=== PATIENT | female | born 1960 | race Hispanic/Latino ===

== ENCOUNTER 2017-07-16 18:45 | Emergency (ER) | payer OTHER ==
[2017-07-16 18:59] VITALS: BP 119/83; PULSE 65; RESP 16; TEMP 98.7; O2SAT 100
--- NOTE | 2017-07-16 19:56 | ED PDOC ---
Lower Extremity Pain/Injury Time Seen by Provider: 07/16/17 19:01 Chief Complaint (Nursing): Lower Extremity Problem/Injury Chief Complaint (Provider): shaheedma History Per: Patient History/Exam Limitations: no limitations Additional Complaint(s): 57yo F in Ed for eal of fall injury-states that she fell down a flight of staircase and now with swelling to right ankle unable to bear wght pain with ROM and tingling sensation to foot without radiation to leg. pt also c.o b/l wrist pain with dec ROM and tingling sensation to wrist. with swelling to ulnar side. pt doesn't remember how she fell onto wrist. right hand dominant Past Medical History Reviewed: Historical Data, Nursing Documentation, Vital Signs Vital Signs: Last Vital Signs Temp 98.7 F 07/16/17 18:54 Pulse 65 07/16/17 18:54 Resp 16 07/16/17 18:54 BP 119/83 07/16/17 18:54 Pulse Ox 100 07/16/17 18:54 - Medical History PMH: No Chronic Diseases - Family History Family History: States: No Known Family Hx - Allergies Allergies/Adverse Reactions: Allergies Allergy/AdvReac Type Severity Reaction Status Date / Time No Known Allergies Allergy Verified 07/16/17 19:11 Review of Systems ROS Statement: Except As Marked, All Systems Reviewed And Found Negative Musculoskeletal: Positive for: Other (ankle pain b/l and wrist pain b/l) Physical Exam - Reviewed Nursing Documentation Reviewed: Yes Vital Signs Reviewed: Yes - Physical Exam Appears: Positive for: Well, Non-toxic, No Acute Distress Skin: Positive for: Normal Color, Warm, DRY Cardiovascular/Chest: Positive for: Regular Rate, Rhythm Respiratory: Positive for: CNT, Normal Breath Sounds Back: Positive for: Normal Inspection, Other Extremity: Positive for: Other (right ankle: swelilng to lateral malleous. tenderness noted , nuerovasc intact . left/right wrist: swellng to radial side with tenderness and dec rOM due to pain. no wrist defomrity noted. able to pronate and supinate. ) Neurologic/Psych: Positive for: Alert, Oriented - ECG O2 Sat by Pulse Oximetry: 100 - Radiology X-Ray: Interpreted by Me (fx noted to left wrist.age inderterminate. right wrist : no fx noted. right ankle: no fracture noted. soft tissue swelling. ) Medical Decision Making Medical Decision Making: dx: wrist fracture volar splint with f.u with hand specialist. ankle sprain aircast and SATYA wrap. f.u with podiatry. pain control Motrin Disposition - Clinical Impression Clinical Impression: Wrist fracture, Ankle sprain, Wrist sprain - Patient ED Disposition Is Patient to be Admitted: No Counseled Patient/Family Regarding: Studies Performed, Diagnosis, Need For Followup, Rx Given - Disposition Referrals: [facility] [Outside] John Reese MD [Medical Doctor] - [facility] [Outside] Disposition: Routine/Home Disposition Time: 20:11 Condition: STABLE Instructions: Ibuprofen (By mouth), Wrist Injury (ED), Wrist Fracture in Adults (ED), Ankle Sprain (ED), Ankle Exercises (GEN)
--- NOTE | 2017-07-17 10:13 | RAD ---
PROCEDURE: Right Ankle Radiographs. HISTORY: ankle injury COMPARISON: No prior study available comparison FINDINGS: BONES: Questionable tiny chip fracture inferolateral tip right lateral malleolus. Overlying moderate soft tissue swelling JOINTS: Normal. No osteoarthritis. Ankle mortise maintained. Talar dome intact SOFT TISSUES: As above OTHER FINDINGS: None. IMPRESSION: Questionable tiny chip fracture inferolateral tip right lateral malleolus. Overlying moderate soft tissue swelling . Note these findings were placed in [facility] review folder for followup
--- NOTE | 2017-07-17 10:17 | RAD ---
PROCEDURE: Bilateral wrists HISTORY: Injury. COMPARISON: No prior study available comparison FINDINGS: BONES: Right Carpal Bones: Normal. No fracture or degenerative changes. Left Carpal Bones: Normal. No fracture or degenerative changes. Comminuted fractured distal left radius and at distal ulna styloid. No fracture or degenerative changes. Left Distal Radius and Ulna: No fracture or degenerative changes. JOINT SPACES: Right Wrist: Normal. No degenerative changes. Left Wrist: Normal. No degenerative changes. SOFT TISSUES: Right Wrist: Normal. Left Wrist: Normal. OTHER FINDINGS: None. IMPRESSION: There are comminuted fractures of the distal right and left radii left slightly more more displaced than the right. Additionally, there is a fracture of the distal distal left ulna styloid. Old unfused fracture deformity distal right ulna styloid. . Note this report was placed in PA review folder for followup
== END 2017-07-16 20:23 | disposition home or self-care (01) ==
LOC: H.ER 18:45
DX: M25.532 Pain in left wrist (principal); M25.531 Pain in right wrist; S62.102A Fracture of unspecified carpal bone, left wrist, initial encounter for closed fracture; S93.401A Sprain of unspecified ligament of right ankle, initial encounter; W10.9XXA Fall (on) (from) unspecified stairs and steps, initial encounter